=== PATIENT | female | born 1965 | race Caucasian/White ===

== ENCOUNTER 2020-06-24 06:32 | Emergency (ER) | payer OTHER ==
[2020-06-24] MEDS ORDERED: ROBAXIN750 MG PO (11:42)
== END 2020-06-24 13:46 | disposition home or self-care (01) ==
LOC: FER 06:32
DX: S22.088A Other fracture of T11-T12 vertebra, initial encounter for closed fracture (principal); Z88.5 Allergy status to narcotic agent; X50.9XXA Other and unspecified overexertion or strenuous movements or postures, initial encounter
CPT/HCPCS: 72072; 72100; 72128; 96372; 99283; J1885